=== PATIENT | male | born 1995 | race Two or more races ===

== ENCOUNTER 2019-03-05 15:25 | Emergency (ER) | payer SELFPAY ==
[~2019-03-05] VITALS: Ht 172.7 cm; Wt 62.0 kg
[2019-03-05] MEDS ORDERED: OXYCODONE HCL/ACETAMINOPHEN 5/325MG TABLET PO ONE (16:45)
[2019-03-05 19:14] VITALS: BP 121/66
== END 2019-03-05 19:16 | disposition home or self-care (01) ==
LOC: ER 16:41
DX: S82.301A Unspecified fracture of lower end of right tibia, initial encounter for closed fracture (principal); S82.831A Other fracture of upper and lower end of right fibula, initial encounter for closed fracture; W51.XXXA Accidental striking against or bumped into by another person, initial encounter; Y93.66 Activity, soccer; Y92.89 Other specified places as the place of occurrence of the external cause; Y99.8 Other external cause status
CPT/HCPCS: 29505; 73590; 73600; 99283